=== PATIENT | female | born 1990 | race Caucasian/White ===

== ENCOUNTER 2021-10-25 09:16 | Inpatient (IN) | payer BC ==
[2021-10-25] MEDS ORDERED: Misoprostol 200 MCG TAB PR PRN (09:48)
[2021-10-25] MEDS ORDERED: hydrALAZINE 20 MG/ML VIAL SLOW IVP PRN (09:48)
[2021-10-25] MEDS ORDERED: Carboprost 250 MCG/ML AMP IM PRN (09:48)
[2021-10-25] MEDS ORDERED: Ibuprofen 800 MG TAB PO PRN (09:48)
[2021-10-25] MEDS ORDERED: Acetaminophen 500 MG TAB PO PRN (09:48)
[2021-10-25] MEDS ORDERED: Ondansetron PF 4 MG/2 ML Vial IVP PRN (09:48)
[2021-10-25] MEDS ORDERED: Promethazine HCl 25 MG/ML VIAL IM PRN (09:48)
[2021-10-25] MEDS ORDERED: Methylergonovine 0.2 MG/ML VIAL IM PRN (09:48)
[2021-10-25] MEDS ORDERED: Lidocaine 1% (PF) 30 ML VIAL SC PRN (09:48)
[2021-10-25 10:02] VITALS: BMI 28.1
[2021-10-25 10:24] LABS: Hemoglobin 13.9 g/dL (12.0-15.5); Mean Corpuscular HGB CONC 33.7 g/dL (32.0-36.0); Mean Corpuscular Hemoglobin 30.3 pg (27.0-33.0); Mean Corpuscular Volume 90.2 fl (81.6-98.3); Mean Platelet Volume 12.6 fl (7.4-10.4); Platelet Count 169 10x3/uL (150-450); RBC Distribution Width 12.8 % (11.5-14.5); Red Blood Cell (RBC) Count 4.58 10x6/uL (3.90-5.03)
[2021-10-25 10:53] LABS: HBSAg Index 0.17 S/CO (0-0.99); Hep B Surf Ag Non-Reactive S/CO (NonReactive); Syphilis Antibody Nonreactive (Nonreactive); Syphilis Antibody Index 0.04 S/CO (<1.00 Non-Reactive)
[2021-10-25 10:58] LABS: SARS-CoV-2 NAA Rapid Test Not Detected (NotDetected)
[2021-10-25] MEDS: NS w/ Oxytocin 30 units 500 ML IV SCH ×2 (12:37→13:43)
[2021-10-25] MEDS ORDERED: Boostrix 0.5 ML (Tdap) VIAL IM ONE (13:34)
[2021-10-25] MEDS ORDERED: Lanolin Ointment 7 GM TUBE TOP PRN (13:34)
[2021-10-25] MEDS ORDERED: HYDROcodone/Acetaminophen 5/325 mg Tablet PO PRN ×2 (13:34)
[2021-10-25] MEDS ORDERED: Milk Of Magnesia 30 ML UDCUP PO PRN (13:34)
[2021-10-25] MEDS ORDERED: Benzocaine-Menthol 82.5 ML CAN TOP PRN (13:34)
[2021-10-25] MEDS ORDERED: Bisacodyl 10 MG SUPP PR PRN (13:34)
[2021-10-25] MEDS ORDERED: Preparation H Ointment 28 GM TUBE PR PRN (13:34)
[2021-10-25] MEDS ORDERED: Acetaminophen 325 MG TAB PO PRN (13:36)
[2021-10-25 15:29] LABS: HIV (1/2) Antibody/Antigen Non-Reactive (NonReactive)
[2021-10-25] MEDS: Ferrous Sulfate 325 MG TAB PO SCH (17:19)
[2021-10-25] MEDS: Ibuprofen 600 MG TAB PO SCH ×2 (17:19→21:08)
[2021-10-25] MEDS: Docusate Calcium (SURFAK) 240 MG CAP PO SCH (21:09)
[2021-10-26] MEDS: Ibuprofen 600 MG TAB PO SCH ×2 (03:52→10:42)
[2021-10-26 08:06] VITALS: BP 117/69; TEMP 97.7
[2021-10-26] MEDS: Docusate Calcium (SURFAK) 240 MG CAP PO SCH (08:30)
[2021-10-26] MEDS: Ferrous Sulfate 325 MG TAB PO SCH (08:34)
[2021-10-26] MEDS ORDERED: Prenatal Vitamin 1 TAB PO SCH (09:00)
== END 2021-10-26 15:44 | disposition home or self-care (01) | DRG 807 ==
LOC: CSHLD/OP 09:16 → CSHLD 12:56 → CSHPP 16:30
PROVIDERS: ADMIT Obstetrics & Gynecology; ATTEND Obstetrics & Gynecology
PROC: 10E0XZZ Delivery of Products of Conception, External Approach (ICD-10-PCS; principal; 2021-10-25)
PROC: 0KQM0ZZ Repair Perineum Muscle, Open Approach (ICD-10-PCS; 2021-10-25)
DX: O70.1 Second degree perineal laceration during delivery (principal); Z37.0 Single live birth; Z3A.39 39 weeks gestation of pregnancy; Z20.822 Contact with and (suspected) exposure to COVID-19; O69.81X0 Labor and delivery complicated by cord around neck, without compression, not applicable or unspecified
CPT/HCPCS: 36415; 85027; 86780; 86850; 86900; 86901; 87340; 87389; 99282; J2001; J2590; U0002